=== PATIENT | female | born 1955 | race Asian ===

== ENCOUNTER 2019-05-16 09:49 | Day surgery (SDC) | payer BC ==
[2019-05-16] MEDS ORDERED: LIDOCAINE 2% (SDV) 5 ML INJ (10:49)
[2019-05-16] MEDS ORDERED: PROPOFOL 40 ML (10:49)
[2019-05-16] MEDS ORDERED: FENTAnyl 50 MCG/ML VIAL (10:49)
[2019-05-16] MEDS ORDERED: MIDAZOLAM 1 MG/ML 2 ML INJ (10:50)
== END 2019-05-16 13:09 | disposition home or self-care (01) ==
LOC: GIL 09:49
DX: Z12.11 Encounter for screening for malignant neoplasm of colon (principal); K64.8 Other hemorrhoids; J45.909 Unspecified asthma, uncomplicated
CPT/HCPCS: 45378